=== PATIENT | female | born 1960 | race Caucasian/White ===

== ENCOUNTER 2019-08-11 10:04 | Inpatient (IN) ==
[2019-08-11] MEDS ORDERED: ALDACTONE PO ONE (10:26)
[2019-08-11] MEDS ORDERED: LASIX IV ONE (10:26)
[2019-08-11 10:40] LABS: BASO# 0.03 X1000 (0.0-0.2); BASO% 0.2 % (0.0-0.8); EOS# 0.09 X1000 (0.0-0.7); EOS% 0.7 % (0.0-10.0); HEMOGLOBIN 11.9 g/dL (12.0-16.0); IMM GRAN# 0.29 X1000 (0.0-0.04); IMM GRAN% 2.2 % (0.0-0.5); LYMPH# 2.17 X1000 (1.2-3.4); LYMPH% 16.7 % (20.5-51.1); MCH 31.2 PG (27-31); MCHC 30.5 g/dL (33-37); MCV 102.1 FL (81-99); MONO# 0.72 X1000 (0.11-0.59); MONO% 5.5 % (1.7-9.3); MPV 11.3 FL (7.4-10.4); NEUT# 9.73 X1000 (1.4-6.5); NEUT% 74.7 % (42.2-75.2); PLT 237 X1000 (130-400); RBC 3.82 XMIL (4.2-5.4); RDW 15.4 % (11.5-14.5); WBC 13.03 X1000 (4.8-10.8)
--- NOTE | 2019-08-11 11:07 | Diag Imaging Result Doc PS360 ---
EXAM: CHEST-1 VIEW 08/11/2019 HISTORY: dyspnea, hx CHF/COPD TECHNIQUE: AP portable upright at 1059 COMMENT: There is cardiomegaly, increased pulmonary vascularity, and interstitial pulmonary edema. No previous studies are available for comparison. IMPRESSION: Pulmonary edema and cardiomegaly. Electronically signed by Hernandez English 08/11/2019 11:05 AM
[2019-08-11 11:21] LABS: URINE SOURCE CATH
[2019-08-11 11:25] LABS: BILIRUBIN URINE NEGATIVE (NEGATIVE); BLOOD URINE NEGATIVE (NEGATIVE); COLOR YELLOW; GLUCOSE URINE NEGATIVE (NEGATIVE); KETONE URINE NEGATIVE (NEGATIVE); LEUKOCYTES URINE MODERATE (NEGATIVE); NITRITE URINE NEGATIVE (NEGATIVE); PH URINE 5.5; PROTEIN URINE NEGATIVE (NEGATIVE); SP GRAVITY URINE 1.015; TURBIDITY URINE CLEAR (CLEAR); UR EPITHELIAL CELLS <10 /HPF (<10); URINE BACTERIA NEGATIVE /HPF; URINE RBC <10 /HPF (<10); UROBILINOGEN URINE NORMAL (NORMAL)
[2019-08-11 11:29] LABS: ALBUMIN 3.5 g/dL (3.5-5.0); CALCIUM 8.4 mg/dL (8.8-10.2); CREATININE 1.3 mg/dL (0.5-0.9); MAGNESIUM 2.5 mg/dL (1.5-2.7); POTASSIUM 4.6 mmol/L (3.5-5.1); TOTAL BILIRUBIN 0.37 mg/dL (0.20-1.00); TOTAL PROTEIN 6.9 g/dL (6.3-8.3)
--- NOTE | 2019-08-11 14:28 | PROVIDER DOCUMENTATION ---
This chart was entered by Carlota Osorio Scribe, acting as scribe for Roberto Greene MD. HPI-Respiratory General - General Chief Complaint: Shortness of Breath Stated Complaint: SOB Time Seen by Provider: 08/11/19 10:07 Source: patient, EMS, longterm records, old records Allergies/Adverse Reactions: Patient Allergies Allergy/AdvReac Type Severity Reaction Status Date / Time levofloxacin [From Levaquin] Allergy HIVES Verified 08/11/19 10:29 Penicillins Allergy HIVES Verified 08/11/19 10:29 Sulfa (Sulfonamide Allergy HIVES Verified 08/11/19 10:29 Antibiotics) Home Medications: Home Medication List Medication Instructions Recorded Confirmed Last Taken Type Albuterol [Albuterol Neb] 1 ea INH Q4H PRN 08/11/19 08/11/19 Unknown History Alendronate Sodium 70 mg PO QHS 08/11/19 08/11/19 08/10/19 History Allopurinol 100 mg PO BID 08/11/19 08/11/19 08/10/19 History Aspirin [Aspir-Low] 81 mg PO DAILY 08/11/19 08/11/19 08/10/19 History Benzonatate 100 mg PO Q8H PRN 08/11/19 08/11/19 Unknown History Cholecalciferol (Vit D3) [Vitamin 2,000 unit PO DAILY 08/11/19 08/11/19 08/10/19 History D3] Citalopram Hydrobromide 20 mg PO DAILY 08/11/19 08/11/19 08/10/19 History [Citalopram HBr] Diltiazem [Cardizem] 30 mg PO 4XDAY 08/11/19 08/11/19 08/10/19 History Ferrous Sulfate 325 mg PO BID 08/11/19 08/11/19 08/10/19 History Fosfomycin Tromethamine [Monurol] 3 gm PO EVERY OTHER DAY 08/11/19 08/11/19 08/10/19 History Guaifenesin [Guaifenesin ER] 600 mg PO BID 08/11/19 08/11/19 08/10/19 History Hydrocodone Bit/Acetaminophen 5 - 325 mg PO Q8H PRN 08/11/19 08/11/19 08/10/19 History [Hydrocodon-Acetaminophen 5-325] Ipratropium/Albuterol Sulfate 1 ea INH Q4H PRN 08/11/19 08/11/19 08/11/19 History [Iprat-Albut 0.5-3(2.5) mg/3 ml] Levothyroxine Sodium 25 mg PO QAM 08/11/19 08/11/19 08/10/19 History Montelukast Sodium 10 mg PO DAILY 08/11/19 08/11/19 08/10/19 History Pantoprazole Sodium [Protonix] 40 mg PO DAILY 08/11/19 08/11/19 08/10/19 History Pravastatin Sodium 20 mg PO QHS 08/11/19 08/11/19 08/10/19 History Ropinirole HCl 0.5 mg PO DAILY 08/11/19 08/11/19 08/10/19 History Tiotropium [place] Inhaler 18 mcg INH DAILY 08/11/19 08/11/19 08/10/19 History [Spiriva] - History of Present Illness-Resp Nature of Presenting Problem: 59 y/o female presents to ED with SOB onset 3 days ago. EMS reports O2 sats in the 40s at [facility] today. O2 sats 86% on 3L in ED and 93% on 6L. Pt states she has been short of breath since she was taken off of her lasix. Pt is alert and oriented. Quality of Pain: reports: none Severity in ED: reports: moderate Onset/Duration: reports: 3 days ago Timing: reports: still present, getting worse Context: reports: other (hx COPD) Exposure: reports: other (hx COPD) Cough Quality/Degree: reports: no cough Episode Frequency: occasional episodes (hx COPD) Current Respiratory Medication Therapy: Initiated see nurses note Modifying Factors: improves with: oxygen Associated Symptoms: reports: shortness of breath, short of breath, other (low O2 sat) Similar Symptoms Previously?: Yes Recently seen or treated by another doctor?: No Review of Systems - Adult - REVIEW OF SYSTEMS - ADULT Constitutional: denies: chills, fever Eyes: reports: no symptoms reported Ears, Nose, Mouth & Throat: reports: no symptoms reported Cardiovascular: denies: chest pain, palpitations Respiratory: reports: shortness of breath, other (low O2 sat). denies: cough Gastrointestinal: denies: abdominal pain, diarrhea, nausea, vomiting Genitourinary: reports: no symptoms reported Musculoskeletal: denies: back pain, joint pain Integumentary: reports: no symptoms reported Neurological: denies: dizziness/vertigo, seizure Psychiatric: reports: no symptoms reported Endocrine: reports: no symptoms reported Hematologic/Lymphatic: reports: no symptoms reported Allergic/Immunologic: reports: no symptoms reported All Other Systems: Reviewed and Negative Past History - Adult - PAST MEDICAL HISTORY-ADULT Review of Records: reports: Old Records Reviewed, Nursing Assessment Review, Medications Reviewed Major Childhood Illnesses: reports: denies history Cardiovascular: reports: A-Fib, CHF, hyperlipidemia Respiratory: reports: COPD Musculoskeletal: reports: other (gout) Psychiatric: reports: anxiety - PRIOR SURGERIES/PROCEDURES Surgical/Procedure History: reports: BTL, tonsillectomy, bowel surgery (tumor and cyst removed), orthopedic (extremity) (L wrist), gastric bypass - IMMUNIZATION STATUS Childhood Immunizations: See Nurse Assessment Flu Vaccine: See Nurse Assessment - FAMILY HISTORY Family History: reviewed, not pertinent - SOCIAL HISTORY Smoking: quit less than 1 year Substance Use: none/never Alcohol Use Frequency: never Living Situation: family Physical Exam-General - PHYSICAL EXAM-ADULT Initial Vital Signs Reviewed: Yes (93% O2 sat on 6L) - CONSTITUTIONAL General Appearance: appears well, alert, no apparent distress, obese - EYES Eyes: PERRL/EOMI, pink conjunctivae - HEAD, EARS, NOSE, MOUTH & THROAT HENMT: normocephalic/atraumatic, moist mucous membranes, normal ENT inspection - NECK Neck: non-tender, full range of motion - RESPIRATORY Respiratory: chest non-tender, lungs clear, no respiratory distress, no accessory muscle use, decreased breath sounds (distant) - CARDIOVASCULAR Cardiovascular: tachycardia - GASTROINTESTINAL (ABDOMEN) Abdominal Exam: normal bowel sounds, non tender, soft - MUSCULOSKELETAL Back Exam: normal inspection, no CVA tenderness, no vertebral tenderness Extremity: normal range of motion, non-tender - SKIN Integumentary: normal color, warm/dry - NEUROLOGIC Neurologic: grossly normal - PSYCHIATRIC Psych/Mental Status: normal mood/affect, normal thought content, normal thought process, oriented x 3 - HEART Score HEART Score: History: Slightly Suspicious HEART Score: ECG: Non-Specific Repolarization Disturbance/LBBB/PM HEART Score: Age: 45-65 Years HEART Score: Risk Factors for Atherosclerotic Disease: > or = 3 Risk Factors or History of Atherosclerotic Disease HEART Score: Troponin: < or = Normal Limit Total HEART Score:: 4 Progress - PLAN OF CARE/RESULTS Progress/Plan/Lab Results: Vital Signs - 8 hr 08/11/19 10:14 08/11/19 10:15 08/11/19 10:17 Temperature Pulse Rate 117 H 107 H Respiratory Rate 20 35 H 17 Blood Pressure 155/79 O2 Sat by Pulse Oximetry 94 L 08/11/19 10:22 08/11/19 10:30 08/11/19 10:36 Temperature 98.2 F Pulse Rate 120 H 90 103 H Respiratory Rate 20 22 19 Blood Pressure 155/79 121/108 O2 Sat by Pulse Oximetry 86 L 98 95 08/11/19 10:45 08/11/19 10:54 08/11/19 11:00 Temperature Pulse Rate 94 H 100 H 97 H Respiratory Rate 19 22 17 Blood Pressure 136/72 O2 Sat by Pulse Oximetry 96 97 97 08/11/19 11:02 08/11/19 11:15 08/11/19 11:30 Temperature Pulse Rate 113 H 103 H 89 Respiratory Rate 27 H 12 21 Blood Pressure 130/85 O2 Sat by Pulse Oximetry 92 L 93 L 96 08/11/19 11:45 08/11/19 12:00 08/11/19 12:02 Temperature Pulse Rate 94 H 83 129 H Respiratory Rate 23 21 28 H Blood Pressure 105/55 O2 Sat by Pulse Oximetry 95 94 L 95 08/11/19 12:15 08/11/19 12:30 08/11/19 12:45 Temperature Pulse Rate 83 86 81 Respiratory Rate 21 19 18 Blood Pressure O2 Sat by Pulse Oximetry 93 L 91 L 91 L 08/11/19 13:00 08/11/19 13:02 08/11/19 13:15 Temperature Pulse Rate 76 85 79 Respiratory Rate 19 16 18 Blood Pressure 122/53 122/53 O2 Sat by Pulse Oximetry 93 L 92 L 94 L 08/11/19 13:30 Temperature Pulse Rate 91 H Respiratory Rate 17 Blood Pressure O2 Sat by Pulse Oximetry 93 L Laboratory Results - last 24 hr 08/11/19 08/11/19 08/11/19 10:28 10:28 10:28 WBC 13.03 H RBC 3.82 L Hgb 11.9 L Hct 39.0 MCV 102.1 H MCH 31.2 H MCHC 30.5 L RDW Std Deviation 15.4 H Plt Count 237 MPV 11.3 H Immature Gran % (Auto) 2.2 H Neut % (Auto) 74.7 Lymph % (Auto) 16.7 L Richardson % (Auto) 5.5 Eos % (Auto) 0.7 Baso % (Auto) 0.2 Immature Gran # (Auto) 0.29 H Neut # (Auto) 9.73 H Lymph # (Auto) 2.17 Richardson # (Auto) 0.72 H Eos # (Auto) 0.09 Baso # (Auto) 0.03 Sodium 140 Potassium 4.6 Chloride 94 L Carbon Dioxide 31 Anion Gap 15 BUN 53 H Creatinine 1.3 H Estimated GFR/1.73 m2 42 BUN/Creatinine Ratio 41 Glucose 146 H D Calculated Osmolality 296 Calcium 8.4 L Magnesium 2.5 Total Bilirubin 0.37 AST 13 ALT 10 Alkaline Phosphatase 173 H Troponin T Ako-V-Bebmirquttu Pept 3235 H Total Protein 6.9 Albumin 3.5 Globulin 3.4 Albumin/Globulin Ratio 1.0 Urine Source Urine Color Urine Turbidity Urine pH Ur Specific [place] Urine Protein Ur Glucose (Stick) Ur Ketones (Stick) Urine Blood Urine Nitrite Urine Bilirubin Urobilinogen Dipstick Urine Leukocytes Urine WBC (Auto) Urine RBC (Auto) U Epithel Cells (Auto) Urine Bacteria (Auto) 08/11/19 08/11/19 10:28 11:10 WBC RBC Hgb Hct MCV MCH MCHC RDW Std Deviation Plt Count MPV Immature Gran % (Auto) Neut % (Auto) Lymph % (Auto) Richardson % (Auto) Eos % (Auto) Baso % (Auto) Immature Gran # (Auto) Neut # (Auto) Lymph # (Auto) Richardson # (Auto) Eos # (Auto) Baso # (Auto) Sodium Potassium Chloride Carbon Dioxide Anion Gap BUN Creatinine Estimated GFR/1.73 m2 BUN/Creatinine Ratio Glucose Calculated Osmolality Calcium Magnesium Total Bilirubin AST ALT Alkaline Phosphatase Troponin T < 0.010 Dia-W-Boztundxmxf Pept Total Protein Albumin Globulin Albumin/Globulin Ratio Urine Source CATH Urine Color YELLOW Urine Turbidity CLEAR Urine pH 5.5 Ur Specific [place] 1.015 Urine Protein NEGATIVE Ur Glucose (Stick) NEGATIVE Ur Ketones (Stick) NEGATIVE Urine Blood NEGATIVE Urine Nitrite NEGATIVE Urine Bilirubin NEGATIVE Urobilinogen Dipstick NORMAL Urine Leukocytes MODERATE A Urine WBC (Auto) 10-20 A Urine RBC (Auto) <10 U Epithel Cells (Auto) <10 Urine Bacteria (Auto) NEGATIVE Orders Category Date Time Status Stoll Cath Insertion ORDERED Care 08/11/19 10:58 Active CHEST-1 VIEW [RAD] Stat Exams 08/11/19 10:26 Completed CBC WITH DIFF [HEME] Stat Lab 08/11/19 10:28 Completed COMPREHENSIVE METABOLIC PANEL [CHEM] Stat Lab 08/11/19 10:28 Completed MAGNESIUM [CHEM] Stat Lab 08/11/19 10:28 Completed PRO B-NATRIURETIC PEPTIDE Stat Lab 08/11/19 10:28 Completed TROPONIN T Stat Lab 08/11/19 10:28 Completed UA Reflex [URINALYSIS W/POSS RFLX CULT] [URINALYSIS] Lab 08/11/19 11:10 Completed Routine URINE CULTURE [RM] Routine Lab 08/11/19 11:30 Received Furosemide [Lasix] Med 08/11/19 10:26 Discontinued 80 mg IV NOW ONE Spironolactone [Aldactone] Med 08/11/19 10:26 Discontinued 50 mg PO NOW ONE EKG [EKG] Stat Ther 08/11/19 10:27 Ordered Result Diagrams: 08/11/19 10:28 08/11/19 10:28 - EKG 1 Time of EKG reading by physician:: 10:40 EKG Read and Signed by:: Roberto Greene EKG Interpretation (*Must complete 3 of following elements*): Abnormal Rate: 97 Rhythm: Afib [place]: normal QRS: RBB (incomplete), other (low voltage QRS; L anterior fascicular block; cannot rule out anterior infarct) RI Interval: normal ST Wave: normal - XRAY 1 XRAY Study: Chest Impression: See EMR Report ([facility] - [address], [address] [address] [facility] - [address] [place] [address] Department of Imaging Patient: LAUREN SELLERSDM Date: 08/11/19MR#: [id number] : 9ADM Status: PRE ERAcct#: [id number] Age/Sex: 59/FRoom/Bed: Loc: ED Ordering Physician: Roberto Greene MD Family Physician: Jose Alberto Zimmerman MD Reason for Procedure: dyspnea, hx CHF/COPD Signed EXAM: CHEST-1 VIEW 08/11/2019 HISTORY: dyspnea, hx CHF/COPD TECHNIQUE: AP portable upright at 1059 COMMENT: There is cardiomegaly, increased pulmonary vascularity, and interstitial pulmonary edema. No previous s tudies are available for comparison. IMPRESSION: Pulmonary edema and cardiomegaly. Electronically signed by Hernandez English 08/11/2019 11:05 AM 08/11/19 1105 Interpreting Physician: Hernandez English MD Dictated Date/Time: 08/11/19 1104 cc: Roberto Greene MD; Jose Alberto Zimmerman MD) - CONSULTS/PCP/HOSPITALIST Notification #1 *Consult/PCP/Hospitalist*: COOPER Mcclelland for Dr. Verde Time Discussed: 13:58 Reason/Comments: Pulmonary edema, CHF exacerbation Consult Disposition: Admit Departure - Departure Date of Disposition Decision: 08/11/19 Time of Disposition Decision: 13:59 DIAGNOSIS: Pulmonary edema Qualifiers: Chronicity: acute Qualified Code(s): J81.0 - Acute pulmonary edema CHF exacerbation Qualifiers: Heart failure type: unspecified Qualified Code(s): I50.9 - Heart failure, unspecified Disposition: ADMITTED INPATIENT 09 Certified Medical Emergency: Emergent Condition: Stable Referrals and Follow-Ups: Jose Alberto Zimmerman MD [Primary Care Provider] - - Critical Care Note This patient required my direct & personal management of CC.: No Attestation - Physician/ ABEL Attestation Patient care was provided by Advanced Practice Provider:: No The physician spent face to face time with patient:: Yes Advanced Practice Provider documentation review:: Supervising physician onsite and consulted in the evaluation and care of this patient. The physician did have a face to face encounter with the patient. This chart was documented by the indicated scribe, (Carlota Osorio, Nellie) and accurately reflects the services I performed and decisions made by me, Roberto Greene MD, as attested by the provider's signature.
--- NOTE | 2019-08-11 16:02 | EKG Report ---
Test Performed on : 08/11/2019 10:40:31 AM Test Reason : dyspnea Blood Pressure : / mmHG Vent. Rate : 097 BPM Atrial Rate : 065 BPM P-R Int : 000 ms QRS Dur : 092 ms QT Int : 370 ms P-R-T Axes : 000 -67 031 degrees QTc Int : 469 ms Atrial fibrillation. Low voltage QRS Incomplete right bundle branch block Left anterior fascicular block Cannot rule out Anterior infarct , age undetermined Abnormal ECG No previous ECGs available Unconfirmed Result
[2019-08-11] MEDS ORDERED: TYLENOL PO PRN (16:27)
[2019-08-11] MEDS ORDERED: ZOFRAN IV PRN (16:27)
[2019-08-11] MEDS ORDERED: ALBUTEROL NEB INH PRN (16:27)
[2019-08-11] MEDS ORDERED: TESSALON PO PRN (16:27)
--- NOTE | 2019-08-11 16:59 | HISTORY AND PHYSICAL ---
PRIMARY CARE PHYSICIAN: Dr. Zimmerman at [facility]. CHIEF COMPLAINT: Shortness of breath. HISTORY OF PRESENTING ILLNESS: This is a 59-year-old morbidly obese female who presents to [facility] via EMS from [facility] who stated that the patient's O2 saturations were down in the 40s to 60s today and was placed on O2 via EMS. When she arrived to the emergency department on 3 L she was 86% and we bumped her up to 6 L she came up to 93%. States that she had been short of breath since she was taken off her Lasix a few weeks ago when she was in the hospital and her creatinine had gone up to 1.9 according to the patient and there was concern for her acute kidney injury so they took her off of her Lasix. When she arrived today her white blood cell count was 13.03, her BUN was 53 with a creatinine of 1.3. Urinalysis was negative. Chest x-ray showed pulmonary edema and cardiomegaly. She is noted at this time to be sitting on the side of the bed. Answers questions appropriately. Was given Lasix 80 mg IV x1 and spironolactone 50 mg p.o. x1. She had an indwelling Stoll catheter and had already put out about 200 to 300 mL of fluid at the time she was seen so she will be admitted for further evaluation and treatment. PAST MEDICAL HISTORY: Chronic atrial fibrillation, CHF, hyperlipidemia, hypothyroidism, GERD, gout. PAST SURGICAL HISTORY: Of a tonsillectomy, bilateral tubal ligation, a left arm pin placed after a fracture, a wall tumor removed, gastric bypass and abdominal cyst removed, cholecystectomy and appendectomy. FAMILY HISTORY: Reviewed and noncontributory. SOCIAL HISTORY: She is currently [facility]. Was a former smoker, quit 2 months ago, prior to quitting she smoked a pack of cigarettes a day since she was 27 years old. ALLERGIES: Levaquin, penicillin and sulfa. HOME MEDICATIONS: She takes albuterol nebulizer q.4 hours p.r.n., alendronate sodium 70 mg p.o. at bedtime, allopurinol 100 mg p.o. b.i.d., aspirin 81 mg p.o. daily, benzonatate 100 mg p.o. q.8 hours p.r.n., vitamin D3 2000 units p.o. daily, citalopram 20 mg p.o. daily, Cardizem 30 mg p.o. 4 times daily, ferrous sulfate 325 mg p.o. b.i.d., Monurol 3 g p.o. every other day was started 08/08/2019 through 08/17/2019 for UTI, guaifenesin ER 600 mg p.o. b.i.d., [place] 5 one p.o. q.8 hours p.r.n., ipratropium/albuterol sulfate 1 q.4 hour inhalation p.r.n., Synthroid 25 mcg p.o. q.a.m., montelukast sodium 10 mg p.o. daily, pantoprazole 40 mg p.o. daily, pravastatin 20 mg p.o. at bedtime, ropinirole 0.5 mg p.o. daily and Spiriva 18 mcg inhalation daily. LABORATORY DATA: Showed a white blood cell count of 13.03, hemoglobin 11.9, hematocrit 39, platelets 237,000. Sodium 140, potassium 4.6, chloride 94, CO2 31, BUN of 53, creatinine 1.3, glucose 146, troponin less than 0.010, proBNP of 3235. Urinalysis showed moderate leukocytes but otherwise negative. Chest x-ray showed pulmonary edema and cardiomegaly. REVIEW OF SYSTEMS: She denied any fever, chills, blurred vision, dizziness, chest pain, coughing. She has been short of breath. Denied any abdominal pain, constipation, diarrhea, burning or hurting with urination. PHYSICAL EXAMINATION: On arrival she had a temperature of 98.2 degrees, pulse was 117, respirations 35, blood pressure 155/79, was saturating 86% on 3 L, increased O2 to 6 L and is saturating 93%. Blood pressure is down to 122/53, pulse 86. GENERAL: This is a 59-year-old morbidly obese female sitting on the side of the bed, answers questions appropriately. HEENT: Normocephalic, atraumatic. Normal ENT inspection. Oropharynx and nares are clear. Pupils are equal, round and reactive to light, accommodation. Extraocular movements are intact. NECK: Normal inspection, normal range of motion. LUNGS: With decreased breath sounds bilaterally. Equal lung expansion, chest wall movement. HEART: With regular rate and rhythm. No murmurs, rubs, or gallops. ABDOMEN: Soft, nontender, nondistended. Bowel sounds are present x4 quadrants. MUSCULOSKELETAL: She has 4/5 strength x4 extremities. NEUROLOGICAL: The cranial nerves 2-12 appear grossly intact. ASSESSMENT: 1. An acute congestive heart failure exacerbation. 2. An acute hypoxic respiratory failure. 3. Morbid obesity. 4. Chronic atrial fibrillation. 5. Hypothyroidism . PLAN: She will be admitted to the medical unit at [facility] placed on telemetry, O2 per protocol, healthy heart diet, will check an echocardiogram in the a.m. Continue home medications as previously identified. Place on Lasix 40 mg IV q.12, recheck CBC, BMP and she has a indwelling Stoll catheter. Further orders after seen by attending. Dictated by COOPER Rojas for Lee Verde MD cc: COOPER Rojas MD
[2019-08-11] MEDS: CARDIZEM PO SCH ×2 (17:45→20:07)
[2019-08-11] MEDS: LASIX IV SCH (17:45)
[2019-08-11] MEDS: NORCO-5 PO PRN (17:53)
--- NOTE | 2019-08-11 18:19 | HISTORY AND PHYSICAL ---
ADDENDUM: HISTORY OF PRESENT ILLNESS: I have seen and examined Ms. Ac today. Her brother was at the bedside at the time of the encounter. Ms. Ac is a 59-year-old, female, with a history of congestive heart failure, COPD, on home oxygen 3 L, hypothyroidism, normally follows up with physicians in [place], was admitted to [facility] about a week ago for 5 days because of COPD. She was subsequently discharged after 5 days to [facility] for physical rehabilitation. She has been there for the past 5 days, and since this morning, she woke up with acute onset of worsening shortness of breath. She was brought into the hospital. A chest x-ray has revealed cardiomegaly and pulmonary edema. On presentation, the patient was saturating at 94. It did drop to about 86 at one time. PHYSICAL EXAMINATION: VITAL SIGNS: Remarkable for morbid obesity with BMI of 61.4. CHEST: Air entry is bilaterally reduced. There is some diffuse expiratory wheezing. There are also bilateral crackles. CARDIOVASCULAR: Regular rate and rhythm. No murmurs. ABDOMEN: Remarkably distended with edema in the lower abdomen and the lateral aspect of the abdomen. EXTREMITIES: There is also about 3+ lower extremity edema. LABORATORY AND DIAGNOSTIC DATA: 1. I have reviewed her laboratory data, including the CBC and chemistry. 2. Chest x-ray at this time reveals pulmonary edema and cardiomegaly. 3. An EKG shows atrial fibrillation. No ST-segment or T-wave abnormality. ASSESSMENT: 1. Fluid overload, most likely due to underlying congestive heart failure. I understand Ms. Ac is supposed to be on Lasix. However, this was discontinued from [facility] because of renal function abnormalities. I think subsequently, she has just been retaining because she is off her diuretics. We have restarted her diuretics and we will get her recent hospitalization chart from [facility]. 2. Renal insufficiency. Presumably chronic and most likely due to cardiorenal syndrome. However, we will get the labs from [place] and then get to know exactly what her creatinine has been. 3. Acute hypoxemic respiratory failure, presumably due to pulmonary edema. 4. Pulmonary edema secondary to congestive heart failure, probably diastolic dysfunction. 5. Atrial fibrillation. Currently rate controlled. 6. Hypertension. 7. Morbid obesity with body mass index of 61.4. 8. Hypothyroid. PLAN: We will restart Ms. Ac on her home medications. We will also start her on IV diuretics, re-evaluate her fluid status in the morning, and go from there. Please refer to the details of the H P which has been dictated in the chart by the COMMUNITY SPORTS COORDINATOR. cc: Lee Verde MD
[2019-08-11] MEDS: DUONEB (A & A) INH PRN (19:55)
[2019-08-11] MEDS: ZYLOPRIM PO SCH (20:07)
[2019-08-11] MEDS: MUCINEX PO SCH (20:08)
[2019-08-11] MEDS: PRAVACHOL PO SCH (20:08)
[2019-08-11] MEDS: FERROUS SULFATE PO SCH (20:08)
[2019-08-11] MEDS: REQUIP PO SCH (21:16)
[2019-08-12] MEDS: LASIX IV SCH ×2 (06:28→18:03)
[2019-08-12] MEDS: SYNTHROID PO SCH (06:28)
[2019-08-12] MEDS: PROTONIX PO SCH (06:29)
[2019-08-12 07:30] LABS: BASO# 0.03 X1000 (0.0-0.2); BASO% 0.3 % (0.0-0.8); EOS% 0.9 % (0.0-10.0); HEMATOCRIT 35.9 % (37.0-47.0); HEMOGLOBIN 10.9 g/dL (12.0-16.0); IMM GRAN# 0.14 X1000 (0.0-0.04); IMM GRAN% 1.2 % (0.0-0.5); LYMPH# 1.72 X1000 (1.2-3.4); LYMPH% 14.8 % (20.5-51.1); MCH 31.4 PG (27-31); MCHC 30.4 g/dL (33-37); MCV 103.5 FL (81-99); MONO# 0.75 X1000 (0.11-0.59); MONO% 6.4 % (1.7-9.3); MPV 11.4 FL (7.4-10.4); NEUT% 76.4 % (42.2-75.2); PLT 244 X1000 (130-400); RBC 3.47 XMIL (4.2-5.4); RDW 15.7 % (11.5-14.5); WBC 11.64 X1000 (4.8-10.8)
[2019-08-12] MEDS: SPIRIVA INH SCH ×2 (07:38→08:39)
[2019-08-12] MEDS: DUONEB (A & A) INH PRN ×2 (07:38→15:20)
[2019-08-12 07:51] LABS: CREATININE 1.4 mg/dL (0.5-0.9); POTASSIUM 4.4 mmol/L (3.5-5.1)
[2019-08-12] MEDS: VITAMIN D PO SCH (08:36)
[2019-08-12] MEDS: FERROUS SULFATE PO SCH ×2 (08:37→20:09)
[2019-08-12] MEDS: MUCINEX PO SCH ×2 (08:37→20:09)
[2019-08-12] MEDS: ZYLOPRIM PO SCH ×2 (08:37→20:09)
[2019-08-12] MEDS: ASPIRIN EC PO SCH (08:37)
[2019-08-12] MEDS: CARDIZEM PO SCH ×4 (08:37→20:09)
[2019-08-12] MEDS: SINGULAIR PO SCH (08:37)
[2019-08-12] MEDS: NORCO-5 PO PRN ×2 (08:43→17:18)
[2019-08-12] MEDS ORDERED: REQUIP PO SCH (09:00)
--- NOTE | 2019-08-12 14:11 | ECHO REPORT ---
ORDER DATE: 08/11/2019 INTERPRETING PHYSICIAN: Dr. Chandu Connor. ECHOCARDIOGRAPHIC MEASUREMENTS: 1. Interventricular septum 1.0. 2. Left ventricular posterior wall 1.4. 3. Diastolic diameter 5.4. 4. Aorta 2.6 cm. SUMMARY OF THE 2-DIMENSIONAL IMAGIN. Technically suboptimal study. 2. Pulmonic valve was normal. 3. Aortic valve leaflets were mildly sclerosed, trileaflet. 4. Mitral valve leaflets mildly thickened. There is mitral annular calcification. Not well visualized. 5. Tricuspid valve not well visualized. 6. Technically suboptimal study. Very poor acoustic window. 7. Peak velocity across the aortic valve was 2.2 m/sec. There is no aortic stenosis or regurgitation. 8. Peak inflow velocity across the mitral valve was 2 m/sec. Mitral valve area by pressure half time was 2.1 square cm. There is restriction of mitral valve leaflet; however, not well visualized. There is associated mild mitral regurgitation. 9. Mild tricuspid regurgitation. Peak velocity across the tricuspid valve was 3 m/sec. 10. Pulmonary artery systolic pressure of 46 mmHg. 11. Normal left ventricular cavity size. Estimated ejection fraction of 55%. 12. Endocardium not well visualized in all views. 13. Technically suboptimal study. Very poor acoustic window. cc: MD Krystin Flor CRNP
--- NOTE | 2019-08-12 14:13 | PROGRESS NOTE ---
DATE: 08/12/2019 SUBJECTIVE: Today, Ms. Ac refers to be doing well. She said her breathing has significantly improved. She is back to 3 L of nasal cannula which is what she normally takes at home. She is saturating about 97%. OBJECTIVE: General Examination: Ms. Ac is a 59-year-old, female. She is in bed, morbidly obese. She is not in any distress. HEENT: Mucosa is pink and moist. Anicteric. Acyanotic. Neck: Supple. Chest: Air entry is bilaterally reduced. There are some crackles in the posterior lung saldana. Cardiovascular: Regular rate and rhythm. Abdomen is soft. It is globally distended. There is a lot of edema on the lateral aspect of the abdominal wall. There is also about 2+ pedal edema. BDR: The patient is awake, alert, and oriented. Laboratory Data: WBC is 11.64, hemoglobin is 10.9, platelet count of 244,000. Chemistry is also reviewed. Creatinine is 1.4. Rest of chemistry is, for the most part, unremarkable. No imaging studies today. The patient continues to be on IV diuretic therapy and also her home medications have been restarted. Urine culture is negative. ASSESSMENT: 1. Fluid overload secondary to congestive heart failure. We will continue with the diuretic therapy. 2. Renal insufficiency, presumably chronic. 3. Acute on chronic hypoxemic respiratory failure, presumably due to pulmonary edema. The patient is back to her baseline 3 L. 4. Pulmonary edema secondary to congestive heart failure, most likely diastolic dysfunction. The patient underwent an echocardiogram today. We will wait on the results. 5. Atrial fibrillation, currently rate controlled. 6. Hypertension, stable. 7. Hypothyroidism. We will continue with levothyroxine supplement. 8. Morbid obesity with body mass index of 61.4. PLAN: In general, I think Ms. Ac seems to be doing a lot better. She is diuresing well. She is currently negative balance. She still has a lot of fluid on. We will continue with the IV diuretic therapy. We will be pending on the result of the echocardiogram and also pending the medical records from [facility] to review before we embark on any other investigations. From a clinical standpoint, Ms. Ac seems to be doing a lot better. She is down to the 3 L of nasal cannula oxygenation, which is her baseline. DISPOSITION: Potentially, in the next 24 hours, we will be able to get her back to the rehab. cc: Lee Verde MD
[2019-08-12] MEDS: PRAVACHOL PO SCH (20:09)
[2019-08-12] MEDS: CELEXA PO SCH (20:09)
[2019-08-12] MEDS: REQUIP PO SCH (20:09)
[2019-08-13 05:44] LABS: INR 1.21; PROTIME 15.5 Seconds (11.0-16.0)
[2019-08-13] MEDS: LASIX IV SCH ×2 (06:10→18:14)
[2019-08-13] MEDS: PROTONIX PO SCH (06:10)
[2019-08-13] MEDS: SYNTHROID PO SCH (06:10)
[2019-08-13 06:27] LABS: ALBUMIN 2.9 g/dL (3.5-5.0); CALCIUM 8.8 mg/dL (8.8-10.2); CREATININE 1.5 mg/dL (0.5-0.9); POTASSIUM 4.7 mmol/L (3.5-5.1)
--- NOTE | 2019-08-13 06:38 | Diag Imaging Result Doc PS360 ---
EXAM: CHEST-PORTABLE HISTORY: dyspnea TECHNIQUE: Chest single view COMPARISON: 08/11/2019 FINDINGS: The lungs are well expanded. The heart remains enlarged. There is pulmonary edema and a small left pleural effusion. IMPRESSION: No improvement in the pulmonary edema and cardiomegaly Electronically signed by Lisandro Salas 08/13/2019 6:35 AM
[2019-08-13] MEDS ORDERED: MONUROL PO SCH (09:00)
[2019-08-13] MEDS: CELEXA PO SCH (09:03)
[2019-08-13] MEDS: VITAMIN D PO SCH (09:03)
[2019-08-13] MEDS: SINGULAIR PO SCH (09:03)
[2019-08-13] MEDS: MUCINEX PO SCH ×2 (09:03→21:04)
[2019-08-13] MEDS: ZYLOPRIM PO SCH ×2 (09:03→21:04)
[2019-08-13] MEDS: CARDIZEM PO SCH ×4 (09:03→21:04)
[2019-08-13] MEDS: ASPIRIN EC PO SCH (09:03)
[2019-08-13] MEDS: FERROUS SULFATE PO SCH ×2 (09:04→21:04)
[2019-08-13] MEDS: TUMS PO PRN (10:50)
[2019-08-13] MEDS: SPIRIVA INH SCH (11:12)
[2019-08-13] MEDS: DUONEB (A & A) INH PRN ×2 (11:12→15:53)
--- NOTE | 2019-08-13 12:45 | PROGRESS NOTE ---
DATE: 08/13/2019 SUBJECTIVE: This morning Ms. Ac refers to be doing fairly okay, but she refers to have some residual shortness of breath. She just does not feel like she is ready for discharge today. OBJECTIVE: Vital Signs: Blood pressure is 128/43, pulse of 63, respiration is 18, temperature 98.5 degrees. The patient was saturating 93% on 3 liters. General: Ms. Ac is a 59-year-old morbidly obese female. She was in bed, no distress. Mucosa is pink and moist. Anicteric. Acyanotic. Neck: Supple. Chest: Air entry is bilaterally reduced. There are still some crackles in the posterior lung saldana, but no wheezing. Cardiovascular: Regular rate and rhythm. No murmurs, no rubs, no gallops. Gastrointestinal: The abdomen is soft, distended, but nontender. Some edema in the lateral aspect of the abdominal wall. Extremities: About 2+ pedal edema. Central Nervous System: The patient is awake, alert, and oriented. There is no focal neurological deficit. INPUT AND OUTPUT/WEIGHT: Her input and output, urine output was a 1000. She is currently negative balance of 848. The patient has consumed 100% of breakfast today. Weight is 314. None has been documented since. CURRENT MEDICATIONS: Have all been reviewed. No changes. IMAGING STUDIES: A chest x-ray this morning continues to suggest no improvement in the pulmonary edema and cardiomegaly. LABORATORY DATA: CBC chemistry is reviewed. Creatinine is 1.5, BUN is 59. Rest of chemistry is unremarkable. ASSESSMENT AND PLAN: 1. Acute on chronic hypoxemia on presentation secondary to pulmonary edema. 2. Fluid overload secondary to congestive heart failure. We will continue with diuretic therapy. Chest x-ray this morning has not shown any improvement. 3. Renal insufficiency, presumably chronic. We are awaiting the last admission documentations from [facility]. 4. Pulmonary edema secondary to congestive heart failure due to diastolic dysfunctions. 5. History of paroxysmal atrial fibrillation, currently rate controlled. 6. Hypertension, controlled. 7. Hypothyroidism. We will continue with levothyroxine supplements. 8. Morbid obesity noted. DISCUSSION: In general, Ms. Ac seems to be progressively getting better. She is just minimally negative balance today. We are going to continue with the IV diuretic therapy and reevaluate her tomorrow. We will also repeat a chest x-ray and get physical therapy to start working with her. DISPOSITION: I think in the next 24 hours, Ms. Ac would potentially be okay for discharge. cc: Lee Verde MD
[2019-08-13] MEDS: NORCO-5 PO PRN (17:07)
[2019-08-13] MEDS: REQUIP PO SCH (21:04)
[2019-08-13] MEDS: PRAVACHOL PO SCH (21:04)
[2019-08-14] MEDS: NORCO-5 PO PRN ×3 (00:50→18:18)
[2019-08-14] MEDS: PROTONIX PO SCH (06:39)
[2019-08-14] MEDS: SYNTHROID PO SCH (06:39)
[2019-08-14] MEDS: LASIX IV SCH ×2 (06:39→18:13)
[2019-08-14 07:02] LABS: ALBUMIN 3.1 g/dL (3.5-5.0); CALCIUM 8.6 mg/dL (8.8-10.2); CREATININE 1.3 mg/dL (0.5-0.9); PHOSPHORUS 4.7 mg/dL (2.7-4.5); POTASSIUM 4.8 mmol/L (3.5-5.1)
--- NOTE | 2019-08-14 07:26 | Diag Imaging Result Doc PS360 ---
EXAM: CHEST-PORTABLE 08/14/2019 HISTORY: dyspnea TECHNIQUE: AP portable at 0508 COMMENT: There is cardiomegaly. There is increased pulmonary vascularity. There is mild interstitial pulmonary edema. Considering differences in technique there has been no appreciable change since 08/13/2019. There is slight improvement in pulmonary edema since 08/11/2019. IMPRESSION: Cardiomegaly and pulmonary edema. Electronically signed by Hernandez English 08/14/2019 7:24 AM
[2019-08-14] MEDS: SPIRIVA INH SCH (08:22)
[2019-08-14] MEDS: DUONEB (A & A) INH PRN ×5 (08:22→23:08)
[2019-08-14] MEDS: CARDIZEM PO SCH ×2 (08:42→12:56)
[2019-08-14] MEDS: VITAMIN D PO SCH (08:42)
[2019-08-14] MEDS: ZYLOPRIM PO SCH ×2 (08:43→21:12)
[2019-08-14] MEDS: ASPIRIN EC PO SCH (08:43)
[2019-08-14] MEDS: CELEXA PO SCH (08:43)
[2019-08-14] MEDS: SINGULAIR PO SCH (08:43)
[2019-08-14] MEDS: MUCINEX PO SCH ×2 (08:43→21:09)
[2019-08-14] MEDS: FERROUS SULFATE PO SCH ×2 (08:43→21:11)
--- NOTE | 2019-08-14 11:25 | PROGRESS NOTE ---
DATE: 08/14/2019 SUBJECTIVE: This morning Ms. Ac refers to be doing well. Still has some residual shortness of breath. OBJECTIVE: Vital signs: Blood pressure is 108/50, pulse of 63, respirations 18, temperature 97.7 degrees, patient is saturating 93% on 3 L. General: Ms. Ac is a 59-year-old morbidly obese, female. She is in bed, no distress. HEENT: Mucosa is pink and moist. Anicteric. Acyanotic. Neck: Supple. Chest: Air entry is bilaterally reduced. There are still some crackles in the posterior lung saldana. Cardiovascular: Irregularly irregular but rate controlled. Abdomen: Soft, distended but nontender. Bowel sounds present. There is edema in the lateral aspect of the abdominal wall. Extremities: About 2+ pedal edema. Central nervous system: Patient is awake, alert, and oriented. LABORATORY DATA: Chemistry is reviewed. Creatinine is down to 1.3. ProB is also down to 2719. IMAGING: A chest x-ray this morning continues to show cardiomegaly and pulmonary edema. There is suggestion that there is some slight improvement. INTAKE AND OUTPUT: Urine output was 1400. She is currently negative balance of 1228. CURRENT MEDICATIONS: Have all been reviewed. She is still on IV Lasix which we plan to continue. ASSESSMENT AND PLAN: 1. Acute on chronic hypoxemic respiratory failure on presentation, improving. 2. Fluid overload secondary to congestive heart failure. We will continue with diuretic therapy. 3. Renal insufficiency, presumably chronic. 4. Pulmonary edema secondary to congestive heart failure due to diastolic dysfunction. The patient's chest x-ray this morning seems to suggest some mild improvement. 5. Paroxysmal atrial fibrillation, currently rate controlled. Patient is still in atrial fibrillation but rate is much better. 6. Hypertension, controlled. 7. Hypothyroidism. Will continue with levothyroxine supplement. 8. Morbid obesity. 9. Disposition. Ms. Ac seems to be progressively getting better but I think she is still congested. Her O2 saturation is still borderline normal low. The pro B is improving, so I think we should give her another 24 hours of IV diuretic therapy and hopefully discharge her tomorrow morning. cc: Lee Verde MD MTDD
[2019-08-14] MEDS: REQUIP PO SCH (21:09)
[2019-08-14] MEDS: PRAVACHOL PO SCH (21:09)
[2019-08-15] MEDS: NORCO-5 PO PRN ×2 (01:54→12:04)
[2019-08-15] MEDS: SYNTHROID PO SCH (06:25)
[2019-08-15] MEDS: LASIX IV SCH (06:25)
[2019-08-15] MEDS: PROTONIX PO SCH (06:25)
[2019-08-15] MEDS: SPIRIVA INH SCH (07:56)
[2019-08-15] MEDS ORDERED: CARDIZEM CD PO SCH (09:00)
[2019-08-15] MEDS: SINGULAIR PO SCH (09:07)
[2019-08-15] MEDS: ASPIRIN EC PO SCH (09:07)
[2019-08-15] MEDS: ZYLOPRIM PO SCH (09:07)
[2019-08-15] MEDS: MUCINEX PO SCH (09:07)
[2019-08-15] MEDS: FERROUS SULFATE PO SCH (09:07)
[2019-08-15] MEDS: CELEXA PO SCH (09:07)
[2019-08-15] MEDS: VITAMIN D PO SCH (09:08)
--- NOTE | 2019-08-15 10:51 | DISCHARGE SUMMARY ---
ADMISSION DATE: 08/11/2019 DISCHARGE DATE: 08/15/2019 DISPOSITION: Back to [facility]. FOLLOWUP: 1. Dr. Jose Alberto Zimmerman. 2. Dr. Carmelo Lui in [place]. CONSULTATION DURING THIS ADMISSION: None. IMAGING STUDIES OF SIGNIFICANCE: 1. A chest x-ray initially did show pulmonary edema and cardiomegaly. 2. An echocardiogram showed an ejection fraction of 55% with no wall motion abnormality. 3. A repeat chest x-ray yesterday continues to show cardiomegaly and pulmonary edema. PRESENTING COMPLAINT: Shortness of breath. 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 Ms Ac was admitted to [facility] on 03/18/2019, apparently discharged on 03/27/2019 for congestive heart failure and fluid overload. Over there at that time, she was also evaluated by Cardiology. I understand she was in the [facility], doing pretty fine, started having acute onset of shortness of breath again, was brought to [facility] where she was evaluated, was found to be in fluid overload. A chest x-ray also referred that she did have pulmonary edema and cardiomegaly. She was subsequently admitted to the medical floor for congestive heart failure exacerbation. HOSPITAL COURSE: Ms Ac was admitted to the medical floor, was started on IV diuretics. She did diurese very adequately. She became a negative balance of about 1616 during the hospital course. She was also found to have mildly elevated renal function at 1.3 and that remained like that throughout the hospital course. I reviewed the chart from [facility]. It appears that she had 1.1, so this would be acute on chronic renal failure. The patient would need to follow up with Nephrology. Ms Ac is also morbidly obese with BMI of 61.4 and we theorized that she probably has an underlying obstructive sleep apnea and needs to follow up with the sleep team. Ms Ac has COPD on chronic hypoxemia, uses 3 L of oxygen at home. Upon presentation, she was found to be hypoxemic with O2 saturation of 86. We think this was due to fluid overload and pulmonary edema. During the hospital course, she was adequately diuresed. Her oxygen gas exchange improved and she was she went back to her regular 2 L and she was saturating remarkably well. This morning, she is feeling well. Her current vitals blood pressure is 128/49, pulse is 74, respirations 15, temperature is 98.2 degrees. The patient is saturating well, 97 on 3 L. We think she is fairly stable for discharge. On physical exam, she still has some mild edema and also continues to be in atrial fibrillation. Her proB which was 3235 on admission, is down to 2719 since yesterday. Ms Ac is going to be discharged back to the rehab. She has been advised to continue taking her medications. Spironolactone has been added to her medication to maximize the diuretic effect of the loop diuretics. Ms Ac will also repeat renal function test within about 2 weeks and she has been advised to follow up with Nephrology. ADMISSION DIAGNOSES: 1. Acute on chronic congestive heart failure. 2. Acute hypoxemic respiratory failure. 3. Morbid obesity. 4. Chronic atrial fibrillation. 5. Hypothyroidism. DIAGNOSIS AT THE TIME OF DISCHARGE: 1. Acute on chronic hypoxemic respiratory failure on presentation, presumably due to pulmonary edema. This is significantly improved. Patient is back to her 3 L of baseline nasal cannula oxygenation. 2. Fluid overload secondary to congestive heart failure with preserved ejection fraction. The patient was treated with IV diuretic therapy. She is still slightly hypervolemic, but she is remarkably improved. We will continue with p.o. diuretics including spironolactone and she has been advised to follow up with her geology faculty member, Dr. Lui. 3. Acute on chronic renal failure. The patient's creatinine is down to 1.3, it was 1.1 during her hospitalization in [place] about 5 months ago. She will need to follow up with Nephrology. She also needs to repeat renal function test in about 2 weeks. 4. Chronic atrial fibrillation. The patient is still in atrial fibrillation. She is on Cardizem. She is currently rate controlled. From her records from [facility], the geology faculty member consult did note that the patient was on Xarelto at some point, but then she had a massive GI bleed needing 4 units of PRBC transfusion. We will therefore refer her to follow up with her geology faculty member to decide when they think will be an ideal moment to start her on anticoagulation if they deem necessary. 5. Hypertension is controlled. 6. Hypothyroidism, stabilized on levothyroxine. 7. Morbid obesity with a suspicion of obstructive sleep apnea. Patient has been advised on weight loss and followup with Sleep Medicine. DISCHARGE MEDICATIONS: 1. Allopurinol 100 mg b.i.d. 2. Aspirin 81 mg p.o. daily. 3. Citalopram 20 mg p.o. daily. 4. Pantoprazole 40 mg p.o. daily. 5. Pravastatin 20 mg p.o. at bedtime. 6. Ropinirole 0.5 p.o. daily. 7. Spiriva inhaler. 8. Alendronate 70 mg p.o. q.7. 9. Iron Sulfate 325 b.i.d. 10. Levothyroxine 25 mg p.o. q.a.m. 11. Diltiazem CD 120 p.o. daily. 12. Spironolactone 25 mg p.o. daily. 13. Furosemide 40 mg p.o. daily. All the discharge instructions have been discussed with Kerri Osorio. She voiced understanding. TIME SPENT: For discharge is 37 minutes. cc: Lee Verde MD
[2019-08-15 12:48] VITALS: BP 132/51
[2019-08-15] MEDS: TUMS PO PRN (13:02)
[2019-08-17] MEDS ORDERED: FOSAMAX PO SCH (21:00)
== END 2019-08-15 16:29 | DRG 291 ==
LOC: SUPCPDRO → ED 10:04 → 1N 16:11
PROVIDERS: ATTEND Internal Medicine